=== PATIENT | male | born 1980 | race African-American/Black ===

== ENCOUNTER 2019-02-22 10:32 | Emergency (ER) | payer SELFPAY ==
[~2019-02-22] VITALS: Ht 183 cm; Wt 75.0 kg
[~2019-02-22 10:32] MED LIST: ALBU17AE3; NAPR-243 PO
[2019-02-22] MEDS ORDERED: KETOROLAC 60 MG/2 ML VIAL IM ONE (10:45)
[2019-02-22] MEDS ORDERED: TETANUS,DIPTH,PERTUSS P/F (BOOSTRIX) 0.5 ML VIAL IM ONE (10:45)
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
[2019-02-22 11:09] VITALS: BP 146/98
--- NOTE | 2019-02-22 11:18 | Diagnostic Imaging Report ---
INDICATION: Injury to the right hand. Time of exam: 10:30 AM 3 views of the right hand were obtained. The metacarpals are intact. Phalanges are intact. Carpus unremarkable. No fractures are seen. IMPRESSION: No acute bony abnormality is detected. Dictated by: Dictated on workstation # [id number]
== END 2019-02-22 11:08 | disposition home or self-care (01) ==
LOC: EDUNIT# 10:32 → ER FS 10:35
DX: S00.12XA Contusion of left eyelid and periocular area, initial encounter (principal); S60.221A Contusion of right hand, initial encounter; Z23 Encounter for immunization; Z88.0 Allergy status to penicillin; Y04.8XXA Assault by other bodily force, initial encounter
CPT/HCPCS: 73130; 90715

== ENCOUNTER 2020-01-11 17:36 | Emergency (ER) | payer SELFPAY ==
[~2020-01-11] VITALS: Ht 182.8 cm; Wt 85.0 kg
[2020-01-11 17:40] VITALS: BP 160/102
--- NOTE | 2020-01-11 17:48 | ED Neck-Back Pain/Injury ---
General Chief Complaint: Head/Cervical Problems Stated Complaint: FELL,NECK PAIN History of Present Illness Date Seen by Provider: Jan 11, 2020 Time Seen by Provider: 17:46 Initial Comments 39-year-old male presents with neck and upper back pain. Patient reports he fell couple days ago. Patient was seen by urgent care and given ibuprofen. Patient states she still having some pain in his neck and back. He denies any numbness, tingling, bowel, bladder or any other neurologic or systemic complaints. Patient denies hitting his head. He has no other systemic complaints. Allergies and Home Medications Allergies Uncoded Allergies: PENICILLIN (Allergy, 06/02/10) Home Medications Naproxen 500 Mg Tablet, 1 EACH PO BID PRN Prescribed by: MAURICIO HILL MD on 06/02/10 1613 Patient Home Medication List Home Medication List Reviewed: Yes Review of Systems Constitutional: No chills, No fever EENTM: no symptoms reported Respiratory: no symptoms reported Cardiovascular: no symptoms reported Gastrointestinal: no symptoms reported Genitourinary: no symptoms reported Musculoskeletal: see HPI, back pain Skin: no symptoms reported Psychiatric/Neurological: No Symptoms Reported Past Qrebkrj-Hqisjp-Snchsm Hx Past Med/Social Hx: Reviewed Nursing Past Med/Soc Hx Patient Social History Alcohol Use: Denies Use Recreational Drug Use: No Smoking Status: Never a Smoker 2nd Hand Smoke Exposure: No Recent Foreign Travel: No Contact w/Someone Who Travel: No Recent Hopitalizations: No Physical Abuse: No Sexual Abuse: No Mistreated: No Fear: No Seasonal Allergies Seasonal Allergies: No Past Medical History Surgeries: No Respiratory: No Cardiac: No Neurological: No Genitourinary: No Gastrointestinal: No Musculoskeletal: No Endocrine: No HEENT: No Cancer: No Psychosocial: No Integumentary: No Blood Disorders: No Physical Exam Vital Signs Vital Signs - First Documented 01/11/20 17:40 Temp 36.6 Pulse 98 Resp 16 B/P (MAP) 160/102 (121) Pulse Ox 100 O2 Delivery Room Air Capillary Refill : Height, Weight, BMI Height: '" Weight: lbs. oz. kg; 22.00 BMI Method:Estimated General Appearance: No Apparent Distress HEENT: PERRL/EOMI, Normal ENT Inspection Neck: Full Range of Motion, Supple, Tender Lateral, Tender Midline Cardiovascular: Regular Rate, Rhythm, No Edema Respiratory: Lungs Clear, Normal Breath Sounds Gastrointestinal: Non Tender, Soft Back: No Vertebral Tenderness, Other (bilateral paravertebral tenderness and upper back tenderness) Neurologic/Psychiatric: Oriented x3, Normal Mood/Affect, videogame tester II-XII Norm as Tested; No Motor Weakness, No Sensory Deficit; Other (reflexes 2+ bilateral upp er and lower extremities) Skin: Normal Color, Warm/Dry Lymphatic: No Adenopathy Progress/Results/Core Measures Results/Orders My Orders Orders - RAVEN DIEZ DO Ct Cervical Spine Wo (01/11/20 17:49) Thoracic Spine 3v Ap Lat Swim (01/11/20 17:49) Vital Signs/I&O 01/11/20 17:40 Temp 36.6 Pulse 98 Resp 16 B/P (MAP) 160/102 (121) Pulse Ox 100 O2 Delivery Room Air Diagnostic Imaging Diagonstic Imaging: Xray, CT Comments [facility] [place] [facility] [id number] PT STATUS: REG ER : 1980 PHYSICIAN: RAVEN DIEZ DO ADMIT DATE: 01/11/20/ER FS Draft Date of Exam:01/11/20 THORACIC SPINE 3V AP LAT SWIM INDICATION: Fall, pain. FINDINGS: Thoracic vertebral statures are normal. The alignment is anatomic. The visualized lower cervical spine appeared intact. No fracture demonstrated. IMPRESSION: No acute-appearing abnormality [facility] [place] NAME: DEACON [facility]IANSEN [facility] REC#: [id number] PT STATUS: REG ER : 1980 PHYSICIAN: RAVEN DIEZ DO ADMIT DATE: 01/11/20/ER FS Draft Date of Exam:01/11/20 CT CERVICAL SPINE WO PROCEDURE: CT cervical spine without contrast. TECHNIQUE: Multiple contiguous axial images were obtained through the cervical spine without the use of intravenous contrast. Sagittal and coronal reformations were then performed. Auto Exposure Controls were utilized during the CT exam to meet ALARA standards for radiation dose reduction. INDICATION: Fall, neck pain Reconstruction views reveal normal cervical vertebral body heights aligned anatomically. No substantial canal stenosis. No cervical fracture or paravertebral hematoma. The visualized pulmonary apices showed left greater than right apical cysts. There is partial opacification of the incompletely visualized left maxillary sinus. The mastoid air cells, where visualized, were clear. The visualized bony skull base intact. IMPRESSION: No cervical spinal fracture or traumatic malalignment. Biapical paraseptal blebs and left maxillary sinus disease incompletely visualized. Reviewed: Reviewed by Me, Reviewed/Discussed Departure Impression Primary Impression: Neck sprain Qualified Codes: S13.9XXA - Sprain of joints and ligaments of unspecified parts of neck, initial encounter Additional Impression: Contusion of thoracic wall Qualified Codes: S20.229A - Contusion of unspecified back wall of thorax, initial encounter Disposition: 01 HOME, SELF-CARE Condition: Stable Departure-Patient Inst. Referrals: NO,LOCAL PHYSICIAN (PCP/Family) Primary Care Physician Patient Instructions: Neck Sprain (DC), Contusion (DC), Blunt Chest Trauma Add. Discharge Instructions: 4% topical lidocaine with menthol as directed on package Capsaicin cream as directed on package Emergency department focuses on treating and ruling out life-threatening diseases. Whenever possible, a diagnosis is given. However, most patients are given an impression based on their history, physical exam, and workup during your brief time in the ER. Information about probable diagnosis and other educational material has been provided. Please take the time to read and understand this information. It is very important that you follow up with a physician as discussed during the visit today. Failure to adhere to your follow-up instructions may lead to severe disability, injury, or so please make sure to keep your appointments or obtain one as requested. Please keep in mind the emergency department is not designed to your primary care or "family doctor" and nonurgent issues are best evaluated by an outpatient physician All discharge instructions reviewed with patient and/or family. Voiced understanding. RAVEN DIEZ DO Jan 11, 2020 17:48
--- NOTE | 2020-01-11 18:22 | Diagnostic Imaging Report ---
INDICATION: Fall, pain. FINDINGS: Thoracic vertebral statures are normal. The alignment is anatomic. The visualized lower cervical spine appeared intact. No fracture demonstrated. IMPRESSION: No acute-appearing abnormality. Dictated by: Dictated on workstation # [id number]
--- NOTE | 2020-01-11 18:29 | Diagnostic Imaging Report ---
PROCEDURE: CT cervical spine without contrast. TECHNIQUE: Multiple contiguous axial images were obtained through the cervical spine without the use of intravenous contrast. Sagittal and coronal reformations were then performed. Auto Exposure Controls were utilized during the CT exam to meet ALARA standards for radiation dose reduction. INDICATION: Fall, neck pain Reconstruction views reveal normal cervical vertebral body heights aligned anatomically. No substantial canal stenosis. No cervical fracture or paravertebral hematoma. The visualized pulmonary apices showed left greater than right apical cysts. There is partial opacification of the incompletely visualized left maxillary sinus. The mastoid air cells, where visualized, were clear. The visualized bony skull base intact. IMPRESSION: No cervical spinal fracture or traumatic malalignment. Biapical paraseptal blebs and left maxillary sinus disease incompletely visualized. Dictated by: Dictated on workstation # [id number]
== END 2020-01-11 18:36 | disposition home or self-care (01) ==
LOC: EDUNIT# 17:36 → ER FS 17:38
DX: S13.9XXA Sprain of joints and ligaments of unspecified parts of neck, initial encounter (principal); S20.20XA Contusion of thorax, unspecified, initial encounter; Z88.0 Allergy status to penicillin; W19.XXXA Unspecified fall, initial encounter
CPT/HCPCS: 72072; 72125

== ENCOUNTER → 2020-05-12 | Outpatient (CLI) | payer SELFPAY ==
--- NOTE | 2020-05-12 15:16 | Diagnostic Imaging Report ---
INDICATION: Displaced fracture of shaft of fifth metacarpal bone. Right hand at 142 hours. 4 views were obtained. FINDINGS: The previous right hand exam of 02/22/2019 failed to show any sign of an acute bony abnormality. On this exam, however there is now a transverse slightly irregular mildly dorsally angulated nondisplaced fracture extending through the waist of the midshaft of the 5th metacarpal. There is also a fiberglass cast in place and I suspect that this fracture is subacute nature. If previous studies are available, they would be helpful for comparison. No other fracture or acute bony abnormality is appreciated. The soft tissues are unremarkable. IMPRESSION: 1. There is a transverse probably subacute essentially nondisplaced fracture of the waist of the 5th metacarpal. Additional considerations as above. 2. There is no acute bony abnormality noted otherwise. Dictated by: Dictated on workstation # [id number]
== END ==
LOC: RAD FS 13:38
PROVIDERS: ATTEND Nurse Practitioner
DX: S62.326A Displaced fracture of shaft of fifth metacarpal bone, right hand, initial encounter for closed fracture (principal)
CPT/HCPCS: 73130

== ENCOUNTER → 2020-05-30 | Outpatient (CLI) | payer SELFPAY ==
--- NOTE | 2020-05-30 15:37 | Diagnostic Imaging Report ---
INDICATION: Followup right 5th metacarpal fracture. COMPARISON: 05/12/2020. FINDINGS: A fiberglass cast remains in place. The transverse fracture of the midshaft of the 5th metacarpal is again noted. There has been some early bony bridging callus develop. The alignment is unchanged. IMPRESSION: Nondisplaced 5th metacarpal shaft fracture with some bony bridging callus developing. Dictated by: Dictated on workstation # [id number]
== END ==
LOC: RAD FS 14:22
PROVIDERS: ATTEND Nurse Practitioner
DX: S62.326D Displaced fracture of shaft of fifth metacarpal bone, right hand, subsequent encounter for fracture with routine healing (principal); X58.XXXD Exposure to other specified factors, subsequent encounter
CPT/HCPCS: 73130

== ENCOUNTER → 2020-06-06 | Outpatient (CLI) | payer SELFPAY ==
--- NOTE | 2020-06-06 12:33 | Diagnostic Imaging Report ---
INDICATION: Fracture followup. COMPARISON: 05/30/2020. FINDINGS: There has been some increased periosteal and endosteal new bone formation associated with a healing mid shaft 5th metacarpal fracture. The distal fragment shows mild anterior palmar angulation, unchanged. No overlap or foreshortening. No articular injury. IMPRESSION: Stable alignment of the healing mid shaft extra-articular 5th metacarpal fracture. Dictated by: Dictated on workstation # [id number]
== END ==
LOC: RAD FS 10:10
PROVIDERS: ATTEND Nurse Practitioner
DX: S62.326D Displaced fracture of shaft of fifth metacarpal bone, right hand, subsequent encounter for fracture with routine healing (principal); X58.XXXD Exposure to other specified factors, subsequent encounter
CPT/HCPCS: 73130

== ENCOUNTER 2022-06-24 18:37 | Emergency (ER) | payer BC ==
[~2022-06-24] VITALS: Ht 182.8 cm; Wt 92.3 kg
--- NOTE | 2022-06-24 18:42 | ED Cough/URI ---
General Stated Complaint: SOA, BRONCHITIS History of Present Illness Date Seen by Provider: Jun 24, 2022 Time Seen by Provider: 18:42 Initial Comments 41-year-old male with PMH of asthma/ex-smoker, is here with complaints of ongoing bronchitis which has been going on for 1 week, and was diagnosed in urgent care. Today patient states that he is more short of breath than usual and he has run out of his albuterol inhaler which usually helps his shortness of breath when he is ill. Patient complains of coughing and sternal chest pain which is associated with a coughing, and which hurts when he presses on it. Denies palpitations, headache, abdominal pain, diaphoresis, diarrhea. No known sick contacts. Allergies and Home Medications Allergies Uncoded Allergies: PENICILLIN (Allergy, 06/02/10) Patient Home Medication List Home Medication List Reviewed: Yes Albuterol (Proventil) 17 Gm Inh, (Reported) Entered as Reported by: JUWAN ELLIS on 06/02/10 1438 Naproxen (Naprosyn) 500 Mg Tablet, 1 EACH PO BID PRN Prescribed by: MAURICIO HILL MD on 06/02/10 1613 Review of Systems Review of Systems Constitutional: no symptoms reported EENTM: no symptoms reported Respiratory: see HPI, cough, short of breath, wheezing Cardiovascular: no symptoms reported Gastrointestinal: no symptoms reported Genitourinary: no symptoms reported Musculoskeletal: no symptoms reported Skin: no symptoms reported Psychiatric/Neurological: No Symptoms Reported Hematologic/Lymphatic: No Symptoms Reported Immunological/Allergic: no symptoms reported Past Uqgsebh-Wvfvpm-Qmpnty Hx Seasonal Allergies Seasonal Allergies: No Past Medical History Surgeries: No Respiratory: No Cardiac: No Neurological: No Genitourinary: No Gastrointestinal: No Musculoskeletal: No Endocrine: No HEENT: No Cancer: No Psychosocial: No Integumentary: No Blood Disorders: No Physical Exam Vital Signs - First Documented 06/24/22 18:40 Temp 36.8 Pulse 94 Resp 20 B/P (MAP) 139/95 (110) Pulse Ox 100 O2 Delivery Room Air Capillary Refill : Height: '" Weight: lbs. oz. kg; 25.00 BMI Method:Estimated General Appearance: WD/WN, mild distress Eyes: Bilateral Eye Normal Inspection HEENT: PERRL/EOMI, pharynx normal Neck: non-tender, full range of motion, supple Respiratory: no respiratory distress, wheezing (Expiratory wheeze which is mild and intermittent), other (Reproducible chest wall tenderness along the 11th and 12th costochondral junction) Cardiovascular: regular rate, rhythm, no gallop Gastrointestinal: normal bowel sounds, non tender, soft Extremities: normal range of motion Neurologic/Psychiatric: alert, normal mood/affect, oriented x 3 Skin: normal color Progress/Results/Core Measures Suspected Sepsis SIRS Temperature: Pulse: Respiratory Rate: Blood Pressure / Mean: Results/Orders Lab Results Laboratory Tests Test 06/24/22 18:57 Range/Units Influenza Type A (RT-PCR) Not Detected Not Detecte Influenza Type B (RT-PCR) Not Detected Not Detecte SARS-CoV-2 RNA (RT-PCR) Not Detected Not Detecte My Orders Orders - ANGUS ANDERSON MD Chest 1 View Ap/Pa Only (06/24/22 18:43) Influenza A And B By Pcr (06/24/22 18:45) Covid 19 Inhouse Test (06/24/22 18:46) Albuterol/Ipra Inhalation Soln (Duoneb I (06/24/22 19:00) Svn Small Volume Nebulizer (06/24/22 18:46) Dexamethasone Injection (Decadron Inje (06/24/22 19:00) Continuous Ekg Monitoring (06/24/22 18:47) Ekg Tracing (06/24/22 18:47) Medications Given in ED Current Medications Medications Dose Ordered Sig/Arianne Route Start Time Stop Time Status Last Admin Dose Admin Albuterol/ Ipratropium 3 ml ONCE ONCE INH 06/24/22 19:00 06/24/22 19:01 DC 06/24/22 19:04 3 ML Dexamethasone Sodium Phosphate 10 mg ONCE ONCE IM 06/24/22 19:00 06/24/22 19:01 DC 06/24/22 19:04 10 MG Vital Signs/I&O 06/24/22 18:40 Temp 36.8 Pulse 94 Resp 20 B/P (MAP) 139/95 (110) Pulse Ox 100 O2 Delivery Room Air Capillary Refill : Progress Note : Progress Note 1. ACUTE ASTHMA EXACERBATION / BRONCHITIS - CXR: no acute findings - COVID/ Flu test: - EKG: normal - Dexa 10mg im STAT - Duo neb x1 : pt's symptoms resolved with this, and he stopped having chest wall pain as well, with a clear lung exam -Prescription for azithromycin for 3 days with the first tablet being given in the ER. -Follow-up with PCP within the next 3 to 7 days -Advised to stay away from secondhand smoke, and also advised to drink 6 to 8 glasses of water a day -The patient was seen in the ED, and treated appropriately to presentation at a specific point in time. Patient is informed that there is a possibility that disease and illness can evolve and change in acuity rapidly or slowly after patient is discharged from the ER. Precautionary advice given to the patient for immediate return to ER if symptoms worsen or do not resolve, and to seek emergency care sooner rather than later. Pt also advised on the importance of PCP follow up and compliance with management and follow up plan with PCP and/or specialist, as this is part of the management plan. Pt verbally expressed understanding. 2. MEDICATION REFILL: - Refill given for Albuterol inhaler and also dispensed from ER since pharmacy was closed ECG Initial ECG Impression Date: Jun 24, 2022 Initial ECG Impression Time: 18:56 Initial ECG Rate: 73 Initial ECG Rhythm: Normal Sinus Initial ECG Intervals: Normal Initial ECG Impression: Normal Initial ECG Comparisson: No Previous ECG Available Diagnostic Imaging Diagonstic Imaging: Xray Plain Films/CT/US/NM/MRI: chest Comments NAME: DEACON CHRISTIANSEN [facility] REC#: [id number] PT STATUS: REG ER : 1980 PHYSICIAN: ANGUS ANDERSON MD ADMIT DATE: 06/24/22/ER FS Draft Date of Exam:06/24/22 CHEST 1 VIEW AP/PA ONLY INDICATION: Shortness of breath and bronchitis. FINDINGS: The heart size, mediastinal configuration and pulmonary vascularity are within normal limits. There is no pleural effusion, pneumothorax or pneumonia. The osseous structures are unremarkable. IMPRESSION: No acute cardiopulmonary abnormality. Dictated on workstation # [id number] Dict: 06/24/221853 Trans: 06/24/221856 PJE [id number] Interpreted by: ERIC REED MD Electronically signed by: Departure Impression Primary Impression: Acute asthma exacerbation Qualified Codes: J45.901 - Unspecified asthma with (acute) exacerbation Additional Impression: Bronchitis Disposition: 01 HOME, SELF-CARE Condition: Improved Departure-Patient Inst. Referrals: NO,LOCAL PHYSICIAN (PCP/Family) Primary Care Physician Patient Instructions: Asthma, Adult (DC), Acute Bronchitis, Chronic Bronchitis, Oral Steroid Medicines Add. Discharge Instructions: -Prescription for azithromycin for 3 days with the first tablet being given in the ER. -Follow-up with PCP within the next 3 to 7 days -Advised to stay away from secondhand smoke, and also advised to drink 6 to 8 glasses of water a day - Refill given for Albuterol inhaler and also dispensed from ER since pharmacy was closed Scripts Prednisone (Prednisone) 50 Mg Tab 50 MG PO DAILY for 4 Days, #4 TAB Prov: ANGUS ANDERSON MD 06/24/22 Albuterol Sulfate (VENTOLIN HFA) 1 Puff Puff 2 PUFF INH Q4H PRN for WHEEZING for 30 Days, #1 EA 1 PUFF = 90 MCG Prov: ANGUS ANDERSON MD 06/24/22 Work/School Note: Work Release Form Date Seen in the Emergency Department: Jun 24, 2022 Return to Work: Jun 26, 2022 ANGUS ANDERSON MD Jun 24, 2022 18:42
--- NOTE | 2022-06-24 18:57 | Diagnostic Imaging Report ---
INDICATION: Shortness of breath and bronchitis. FINDINGS: The heart size, mediastinal configuration and pulmonary vascularity are within normal limits. There is no pleural effusion, pneumothorax or pneumonia. The osseous structures are unremarkable. IMPRESSION: No acute cardiopulmonary abnormality. Dictated by: Dictated on workstation # [id number]
[2022-06-24] MEDS ORDERED: RT-ALBUTEROL/IPRATROPIUM 3 ML (DUONEB) VIAL INH ONE (19:00)
[2022-06-24] MEDS ORDERED: PRD50T PO (19:59)
[2022-06-24] MEDS ORDERED: RT-ALBUINH INH (19:59)
[2022-06-24] MEDS ORDERED: AZITHROMYCIN 250 MG TAB (ZITHROMAX) PO ONE ×2 (20:00→20:09)
[2022-06-24] MEDS ORDERED: RX-ALBUTEROL INHALER 8.5 GM HFA (PROAIR) IH PRN (20:00)
[2022-06-24] MEDS ORDERED: AZIT500T9 PO (20:02)
[2022-06-24 20:19] VITALS: BP 126/92
== END 2022-06-24 20:21 | disposition home or self-care (01) ==
LOC: EDUNIT# 18:37 → ER FS 18:39
DX: J45.901 Unspecified asthma with (acute) exacerbation (principal); Z79.51 Long term (current) use of inhaled steroids; Z87.891 Personal history of nicotine dependence; Z20.822 Contact with and (suspected) exposure to COVID-19; Z28.310 Unvaccinated for COVID-19
CPT/HCPCS: 71045; 87636; 93005; 94640

== ENCOUNTER 2022-10-02 19:08 | Emergency (ER) | payer BC ==
[~2022-10-02] VITALS: Ht 182.8 cm; Wt 87.9 kg
[~2022-10-02 19:08] MED LIST changes: +AZIT500T9 PO; +PRD50T PO; +RT-ALBUINH INH
[2022-10-02 19:23] VITALS: BP 138/90
[2022-10-02] MEDS ORDERED: DOXYCYCLINE 100 MG (VIBRAMYCIN) TABLET PO STA (19:30)
[2022-10-02] MEDS ORDERED: DOXY100T2 PO (19:34)
--- NOTE | 2022-10-02 19:35 | ED General ---
General Stated Complaint: BODY ACHES Source of Information: Patient Exam Limitations: No Limitations History of Present Illness Date Seen by Provider: October 02, 2022 Time Seen by Provider: 19:11 Initial Comments 41-year-old male otherwise healthy coming in after he pulled a tick off him on , now with body aches, fatigue, elevated subjective temperature. Does not know if he has a rash. Otherwise denying any other acute complaints. Allergies and Home Medications Allergies Uncoded Allergies: PENICILLIN (Allergy, 06/02/10) Patient Home Medication List Home Medication List Reviewed: Yes Albuterol (Proventil) 17 Gm Inh, (Reported) Entered as Reported by: JUWAN ELLIS on 06/02/10 1438 Albuterol Sulfate (Ventolin Hfa) 1 Puff Puff, 2 PUFF INH Q4H PRN for WHEEZING Prescribed by: ANGUS ANDERSON MD on 06/24/221958 Azithromycin (Azithromycin) 500 Mg Tablet, 500 MG PO DAILY Prescribed by: ANGUS ANDERSON MD on 06/24/222001 Doxycycline Hyclate (Doxycycline Hyclate) 100 Mg Tablet, 100 MG PO BID Prescribed by: LILLI FERNANDEZ on 10/02/221933 Naproxen (Naprosyn) 500 Mg Tablet, 1 EACH PO BID PRN Prescribed by: MAURICIO HILL MD on 06/02/10 161 Prednisone (Prednisone) 50 Mg Tab, 50 MG PO DAILY Prescribed by: ANGUS ANDERSON MD on 06/24/221958 Review of Systems Review of Systems Constitutional: malaise Past Maxoxva-Pdjjao-Bgpupj Hx Seasonal Allergies Seasonal Allergies: No Past Medical History Surgeries: No Respiratory: No Cardiac: No Neurological: No Genitourinary: No Gastrointestinal: No Musculoskeletal: No Endocrine: No HEENT: No Cancer: No Psychosocial: No Integumentary: No Blood Disorders: No Physical Exam Vital Signs Vital Signs - First Documented 10/02/22 19:23 Temp 37.2 Pulse 108 Resp 18 B/P (MAP) 138/90 (106) Pulse Ox 98 O2 Delivery Room Air Capillary Refill : Height, Weight, BMI Height: '" Weight: lbs. oz. kg; 27.00 BMI Method:Estimated General Appearance: No Apparent Distress, WD/WN HEENT: PERRL/EOMI, Normal ENT Inspection, Pharynx Normal Neck: Full Range of Motion, Normal Inspection, Non Tender, Supple Respiratory: Chest Non Tender, Lungs Clear, Normal Breath Sounds, No Accessory Muscle Use, No Respiratory Distress Cardiovascular: Regular Rate, Rhythm, No Edema, Normal Peripheral Pulses Gastrointestinal: Non Tender, Soft Extremity: Normal Capillary Refill, Normal Inspection, Normal Range of Motion, Non Tender, No Calf Tenderness Neurologic/Psychiatric: Alert, No Motor/Sensory Deficits, Normal Mood/Affect, Other (No meningismus) Progress/Results/Core Measures Suspected Sepsis SIRS Temperature: Pulse: Respiratory Rate: Blood Pressure / Mean: Results/Orders Lab Results Laboratory Tests Test 10/02/22 19:27 Range/Units SARS-CoV-2 RNA (RT-PCR) Not Detected Not Detecte My Orders Orders - LILLI FERNANDEZ MD Doxycycline Hyclate Tablet (Vibramycin T (10/02/22 19:30) Covid 19 Inhouse Test (10/02/22 19:30) Tick Panel With Lyme Eia (10/02/22 19:30) Vital Signs/I&O 10/02/22 19:23 Temp 37.2 Pulse 108 Resp 18 B/P (MAP) 138/90 (106) Pulse Ox 98 O2 Delivery Room Air Capillary Refill : Progress Note : Progress Note Presented after a tick bite with body aches. ABCs were intact and vitals were stable on presentation. Has a small area of erythema on his left scapula where he was bitten. No target rash. Given the body aches, and concern for tickborne illness. We will send a test for COVID as well as the tick panel. We will start him on doxycycline here and followed by prescription. COVID test is negative. Otherwise nontoxic-appearing, no meningismus, and I believe stable for discharge with outpatient follow-up. He was sent home with strict return precautions. Of note, patient left prior to getting COVID results. I attempted to call the number on file to say they were negative and the number was disconnected. Departure Impression Primary Impression: Tick bite Qualified Codes: S20.462A - Insect bite (nonvenomous) of left back wall of thorax, initial encounter; W57.XXXA - Bitten or stung by nonvenomous insect and other nonvenomous arthropods, initial encounter Additional Impression: Flu-like symptoms Disposition: 01 HOME, SELF-CARE Condition: Stable Departure-Patient Inst. Decision time for Depature: 19:40 Referrals: NO,LOCAL PHYSICIAN (PCP/Family) Primary Care Physician Patient Instructions: Insect Bites and Stings (DC) Add. Discharge Instructions: We are concerned you could have a tickborne illness. We will call you with the results and likely 5 to 7 days if they are positive. We will start you on doxycycline which is the treatment for most tickborne illnesses. Take ibuprofen or Tylenol as needed for fever or body aches. Scripts Doxycycline Hyclate (Doxycycline Hyclate) 100 Mg Tablet 100 MG PO BID for 10 Days, #20 TAB 0 Refills Prov: LILLI FERNANDEZ MD 10/02/22 Work/School Note: Work Release Form Date Seen in the Emergency Department: October 02, 2022 Return to Work: October 04, 2022 Restrictions: Return-No Fever (24hrs) LILLI FERNANDEZ MD October 02, 2022 19:35
== END 2022-10-02 19:51 | disposition home or self-care (01) ==
LOC: EDUNIT# 19:08 → ER FS 19:09
DX: S20.462A Insect bite (nonvenomous) of left back wall of thorax, initial encounter (principal); R53.83 Other fatigue; R50.9 Fever, unspecified; R52 Pain, unspecified; Z88.0 Allergy status to penicillin; Z20.822 Contact with and (suspected) exposure to COVID-19; Z28.310 Unvaccinated for COVID-19; W57.XXXA Bitten or stung by nonvenomous insect and other nonvenomous arthropods, initial encounter
CPT/HCPCS: 36415; 86618; 86666; 86668; 86757; 87636

== ENCOUNTER 2022-10-04 11:41 | Emergency (ER) | payer BC ==
[~2022-10-04] VITALS: Ht 182 cm; Wt 88.0 kg
[~2022-10-04 11:41] MED LIST changes: +DOXY100T2 PO
--- NOTE | 2022-10-04 11:48 | ED General ---
General Stated Complaint: FATIGUE Source of Information: Patient Exam Limitations: No Limitations History of Present Illness Date Seen by Provider: October 04, 2022 Time Seen by Provider: 11:37 Initial Comments 41-year-old male with history of asthma presents to the emergency department via EMS for fatigue. He states symptoms started on Saturday. He was seen here on Saturday. He did have a tick in his scapular region that was pulled off 5 days before symptoms started. Tick panel was sent and was started on doxycycline by mouth. He states he has been taking the medicine but his fatigue is gotten progressively worse. He complains of joint pains as well. He states he has had some fevers at home with the last being 100 degrees when taken orally last night. No cough. No abdominal pain. No changes in bowel or bladder habits. All other systems reviewed and negative except documented per HPI. Voice recognition software was used to help create this chart Allergies and Home Medications Allergies Uncoded Allergies: PENICILLIN (Allergy, 06/02/10) Patient Home Medication List Home Medication List Reviewed: Yes Albuterol (Proventil) 17 Gm Inh, (Reported) Entered as Reported by: JUWAN ELLIS on 06/02/10 1438 Albuterol Sulfate (Ventolin Hfa) 1 Puff Puff, 2 PUFF INH Q4H PRN for WHEEZING Prescribed by: ANGUS ANDERSON MD on 06/24/221958 Azithromycin (Azithromycin) 500 Mg Tablet, 500 MG PO DAILY Prescribed by: ANGUS ANDERSON MD on 06/24/222001 Doxycycline Hyclate (Doxycycline Hyclate) 100 Mg Tablet, 100 MG PO BID Prescribed by: LILLI FERNANDEZ on 10/02/221933 Naproxen (Naprosyn) 500 Mg Tablet, 1 EACH PO BID PRN Prescribed by: MAURICIO HILL MD on 06/02/101612 Prednisone (Prednisone) 50 Mg Tab, 50 MG PO DAILY Prescribed by: ANGUS ANDERSON MD on 06/24/221958 Review of Systems Review of Systems Constitutional: see HPI Past Cvlgqua-Nmvcvv-Btztbm Hx Patient Social History Tobacco Use?: Yes Use of E-Cig and/or Vaping dev: No Substance use?: No Alcohol Use?: No Seasonal Allergies Seasonal Allergies: No Past Medical History Surgeries: No Respiratory: No Cardiac: No Neurological: No Genitourinary: No Gastrointestinal: No Musculoskeletal: No Endocrine: No HEENT: No Cancer: No Psychosocial: No Integumentary: No Blood Disorders: No Family Medical History Reviewed Nursing Family Hx No Pertinent Family Hx Physical Exam Vital Signs Vital Signs - First Documented 10/04/22 11:41 Temp 37.3 Pulse 96 Resp 16 B/P (MAP) 140/92 (108) Pulse Ox 98 O2 Delivery Room Air Capillary Refill : Height, Weight, BMI Height: '" Weight: lbs. oz. kg; 26.00 BMI Method:Estimated General Appearance: No Apparent Distress, WD/WN HEENT: Normal ENT Inspection, Pharynx Normal Neck: Normal Inspection, Non Tender, Supple Respiratory: Chest Non Tender, Lungs Clear, Normal Breath Sounds, No Accessory Muscle Use, No Respiratory Distress Cardiovascular: Regular Rate, Rhythm, No Murmur Gastrointestinal: Normal Bowel Sounds, No Organomegaly, No Pulsatile Mass, Non Tender, Soft Extremity: Normal Capillary Refill, Normal Inspection, Normal Range of Motion, Non Tender, No Calf Tenderness Neurologic/Psychiatric: Alert, Oriented x3, Normal Mood/Affect Skin: Normal Color, Warm/Dry Progress/Results/Core Measures Suspected Sepsis SIRS Temperature: Pulse: Respiratory Rate: Laboratory Tests 10/04/22 11:54: White Blood Count 4.5 Blood Pressure / Mean: Laboratory Tests 10/04/22 11:54: Creatinine 0.82, Platelet Count 212, Total Bilirubin 0.4 Results/Orders Lab Results Laboratory Tests Test 10/04/22 11:54 Range/Units White Blood Count 4.5 4.3-11.0 10^3/uL Red Blood Count 5.02 4.30-5.52 10^6/uL Hemoglobin 14.7 13.3-17.7 g/dL Hematocrit 44 40-54 % Mean Corpuscular Volume 88 80-99 fL Mean Corpuscular Hemoglobin 29 25-34 pg Mean Corpuscular Hemoglobin Concent 33 32-36 g/dL Red Cell Distribution Width 13.8 10.0-14.5 % Platelet Count 212 130-400 10^3/uL Mean Platelet Volume 9.0 9.0-12.2 fL Immature Granulocyte % (Auto) 0 % Neutrophils (%) (Auto) 72 42-75 % Lymphocytes (%) (Auto) 18 12-44 % Monocytes (%) (Auto) 9 0-12 % Eosinophils (%) (Auto) 0 0-10 % Basophils (%) (Auto) 0 0-10 % Neutrophils # (Auto) 3.3 1.8-7.8 10^3/uL Lymphocytes # (Auto) 0.8 L 1.0-4.0 10^3/uL Monocytes # (Auto) 0.4 0.0-1.0 10^3/uL Eosinophils # (Auto) 0.0 0.0-0.3 10^3/uL Basophils # (Auto) 0.0 0.0-0.1 10^3/uL Immature Granulocyte # (Auto) 0.0 0.0-0.1 10^3/uL Sodium Level 137 135-145 MMOL/L Potassium Level 3.8 3.6-5.0 MMOL/L Chloride Level 107 98-107 MMOL/L Carbon Dioxide Level 19 L 21-32 MMOL/L Anion Gap 11 5-14 MMOL/L Blood Urea Nitrogen 8 7-18 MG/DL Creatinine 0.82 0.60-1.30 MG/DL Estimat Glomerular Filtration Rate 115 BUN/Creatinine Ratio 10 Glucose Level 132 H 70-105 MG/DL Calcium Level 8.7 8.5-10.1 MG/DL Corrected Calcium 8.9 8.5-10.1 MG/DL Total Bilirubin 0.4 0.1-1.0 MG/DL Aspartate Amino Transf (AST/SGOT) 31 5-34 U/L Alanine Aminotransferase (ALT/SGPT) 50 0-55 U/L Alkaline Phosphatase 85 40-136 U/L Total Protein 6.6 6.4-8.2 GM/DL Albumin 3.7 3.2-4.5 GM/DL My Orders Orders - GIOVANY MORA DO Cbc With Automated Diff (10/04/22 11:49) Comprehensive Metabolic Panel (10/04/22 11:49) Vital Signs/I&O 10/04/22 10/04/22 11:41 12:34 Temp 37.3 37.3 Pulse 96 84 Resp 16 16 B/P (MAP) 140/92 (108) 136/84 Pulse Ox 98 98 O2 Delivery Room Air Room Air Capillary Refill : Departure Communication (Admissions) Patient is hemodynamically stable. Vital signs are completely normal and his exam is benign. Labs are unremarkable including elevation of LFTs. Tickborne studies are still pending at this time however he is on doxycycline. He is discharged in stable condition. Impression Primary Impression: Fatigue Qualified Codes: R53.83 - Other fatigue Disposition: 01 HOME, SELF-CARE Condition: Stable Departure-Patient Inst. Referrals: NO,LOCAL PHYSICIAN (PCP) Primary Care Physician [facility] [place] Discharge Instructions: You are seen in the emergency department today for fatigue. No emergent medical conditions identified for your symptoms today. Your tick panel is still pending. Increase your fluids and rest as needed. Take the doxycycline as prescribed. Return to the emergency department for any severe concerns. Follow-up with your primary doctor should your symptoms persist as they currently are. GIOVANY MORA DO October 04, 2022 11:48
[2022-10-04 12:00] LABS: BASOPHILS % (AUTO) 0 % (0-10); EOSINOPHILS % (AUTO) 0 % (0-10); HEMATOCRIT 44 % (40-54); HEMOGLOBIN 14.7 g/dL (13.3-17.7); LYMPHOCYTES # (AUTO) 0.8 10^3/uL (1.0-4.0); LYMPHOCYTES % (AUTO) 18 % (12-44); MEAN CORPUSCULAR HEMOGLOBIN 29 pg (25-34); MEAN CORPUSCULAR HGB CONC 33 g/dL (32-36); MEAN CORPUSCULAR VOLUME 88 fL (80-99); MONOCYTES # (AUTO) 0.4 10^3/uL (0.0-1.0); MONOCYTES % (AUTO) 9 % (0-12); NEUTROPHILS # (AUTO) 3.3 10^3/uL (1.8-7.8); NEUTROPHILS % (AUTO) 72 % (42-75); PLATELET COUNT 212 10^3/uL (130-400); WHITE BLOOD COUNT 4.5 10^3/uL (4.3-11.0)
[2022-10-04 12:20] LABS: CALCIUM 8.7 MG/DL (8.5-10.1); CREATININE SERUM 0.82 MG/DL (0.60-1.30); POTASSIUM 3.8 MMOL/L (3.6-5.0)
[2022-10-04 12:21] LABS: ALBUMIN 3.7 GM/DL (3.2-4.5); BILIRUBIN,TOTAL 0.4 MG/DL (0.1-1.0); TOTAL PROTEIN 6.6 GM/DL (6.4-8.2)
[2022-10-04 12:34] VITALS: BP 136/84
== END 2022-10-04 12:35 | disposition home or self-care (01) ==
LOC: EDUNIT# 11:41 → ER FS 11:45
DX: R53.83 Other fatigue (principal); R79.89 Other specified abnormal findings of blood chemistry; Z28.310 Unvaccinated for COVID-19
CPT/HCPCS: 36415; 80053; 85025

== ENCOUNTER 2022-10-09 08:56 | Emergency (ER) | payer BC ==
--- NOTE | 2022-10-09 09:08 | ED General ---
General Stated Complaint: GEN WEAKNESS Source of Information: Patient History of Present Illness Date Seen by Provider: October 09, 2022 Time Seen by Provider: 08:57 Initial Comments 41-year-old male presenting with complaints of general weakness, fever Tmax 102 Fahrenheit last night, chills, body aches, nausea, vomiting, diarrhea, diffuse abdominal pain. He states this all started after a tick bite on September 27. He has been taking doxycycline that was prescribed on July 05. He states he has not been able to eat since Saturday because of stomach pain and nausea with vomiting. He has not thrown up since Saturday. He took ibuprofen for his 102 Fahrenheit temperature last night. He was feeling very weak and was sweating a lot this morning so he had a friend bring him to the emergency department. He reports having a history of asthma but denies any other medical problems and no surgeries. He states that he had been having some diarrhea as well. He denies any pain or burning with urination. Denies seeing any blood in his stool, urine, vomit. Timing/Duration: Getting Worse (Over the last 2 weeks) Severity: Severe Modifying Factors: worse with Eating (Anytime he tries to eat or drink anything he gets sick to his stomach and has pain.) Associated Systoms: No Chest Pain, No Cough; Diaphoresis, Fever/Chills, Loss of Appetite, Malaise, Nausea/Vomiting, Rash (Reports that his face broke out in a rash on Saturday. He has not had any rash around the area of tick bite on the left axilla); No Seizure; Shortness of Air; No Syncope; Weakness Allergies and Home Medications Allergies Coded Allergies: Penicillins (Verified Allergy, Intermediate, Rash, 10/09/22) Patient Home Medication List Home Medication List Reviewed: Yes Albuterol (Proventil) 17 Gm Inh, (Reported) Entered as Reported by: JUWAN ELLIS on 06/02/10 1438 Doxycycline Hyclate (Doxycycline Hyclate) 100 Mg Tablet, 100 MG PO BID Prescribed by: LILLI FERNANDEZ on 10/02/221933 Ondansetron (Ondansetron Odt) 4 Mg Tab.rapdis, 4 MG PO Q6H PRN for NAUSEA/VOMITING Prescribed by: NICOLE ARMSTRONG on 10/09/22 1055 Discontinued Medications Albuterol Sulfate (Ventolin Hfa) 1 Puff Puff, 2 PUFF INH Q4H PRN for WHEEZING Prescribed by: ANGUS ANDERSON MD on 06/24/221958 Azithromycin (Azithromycin) 500 Mg Tablet, 500 MG PO DAILY Prescribed by: ANGUS ANDERSON MD on 06/24/222001 Naproxen (Naprosyn) 500 Mg Tablet, 1 EACH PO BID PRN Prescribed by: MAURICIO HILL MD on 06/02/101612 Prednisone (Prednisone) 50 Mg Tab, 50 MG PO DAILY Prescribed by: ANGUS ANDERSON MD on 06/24/221958 Review of Systems Review of Systems Constitutional: chills, diaphoresis, fever, malaise, weakness EENTM: no symptoms reported Respiratory: short of breath; No stridor, No wheezing Cardiovascular: No chest pain Gastrointestinal: abdominal pain (diffuse abdominal pain), diarrhea, loss of appetite, nausea, vomiting Genitourinary: decreased output Musculoskeletal: other (generalized body aches) Skin: see HPI Psychiatric/Neurological: Weakness (generalized) Hematologic/Lymphatic: No Symptoms Reported Past [place]-Nvbwke-Oxsywr Hx Seasonal Allergies Seasonal Allergies: No Past Medical History Surgery/Hospitalization HX: ASTHMA Surgeries: No Respiratory: No Cardiac: No Neurological: No Genitourinary: No Gastrointestinal: No Musculoskeletal: No Endocrine: No HEENT: No Cancer: No Psychosocial: No Integumentary: No Blood Disorders: No Family Medical History No Pertinent Family Hx Physical Exam Vital Signs Vital Signs - First Documented 10/09/22 09:05 Temp 35.5 Pulse 85 Resp 18 B/P (MAP) 112/74 (87) Pulse Ox 96 O2 Delivery Room Air Capillary Refill : Height, Weight, BMI Height: '" Weight: lbs. oz. kg; 26.00 BMI Method:Estimated General Appearance: No Apparent Distress, WD/WN, Other (diaphoretic and appears to not feel well) HEENT: PERRL/EOMI, Pharynx Normal, Moist Mucous Membranes; No Photophobia Neck: Full Range of Motion, Normal Inspection, Non Tender, Supple Respiratory: Chest Non Tender, Lungs Clear, Normal Breath Sounds, No Accessory Muscle Use, No Respiratory Distress Cardiovascular: Regular Rate, Rhythm, Normal Peripheral Pulses Gastrointestinal: No Pulsatile Mass, Soft, Abnormal Bowel Sounds (hypoactive), Guarding, Tenderness (diffuse) Rectal: Deferred Extremity: Normal Capillary Refill, Normal Inspection, No Pedal Edema Neurologic/Psychiatric: Alert, Oriented x3, beader tender II-XII Norm as Tested Skin: Diaphoresis Focused Exam Lactate Level 10/09/22 09:05: Lactic Acid Level 1.26 Lactic Acid Level Laboratory Tests Test 10/09/22 09:05 Lactic Acid Level 1.26 MMOL/L (0.50-2.00) Progress/Results/Core Measures Suspected Sepsis SIRS Temperature: Pulse: Respiratory Rate: Laboratory Tests 10/09/22 09:05: White Blood Count 2.4L Blood Pressure / Mean: 10/09/22 09:05: Lactic Acid Level 1.26 Laboratory Tests 10/09/22 09:05: Creatinine 1.32H, Platelet Count 169, Total Bilirubin 0.6 Results/Orders Lab Results Laboratory Tests Test 10/09/22 09:05 10/09/22 09:08 10/09/22 09:27 Range/Units White Blood Count 2.4 L 4.3-11.0 10^3/uL Red Blood Count 5.81 H 4.30-5.52 10^6/uL Hemoglobin 16.8 13.3-17.7 g/dL Hematocrit 49 40-54 % Mean Corpuscular Volume 84 80-99 fL Mean Corpuscular Hemoglobin 29 25-34 pg Mean Corpuscular Hemoglobin Concent 34 32-36 g/dL Red Cell Distribution Width 13.2 10.0-14.5 % Platelet Count 169 130-400 10^3/uL Mean Platelet Volume 9.1 9.0-12.2 fL Immature Granulocyte % (Auto) 0 % Neutrophils (%) (Auto) 14 L 42-75 % Lymphocytes (%) (Auto) 77 H 12-44 % Monocytes (%) (Auto) 7 0-12 % Eosinophils (%) (Auto) 0 0-10 % Basophils (%) (Auto) 1 0-10 % Neutrophils # (Auto) 0.4 L 1.8-7.8 10^3/uL Lymphocytes # (Auto) 1.9 1.0-4.0 10^3/uL Monocytes # (Auto) 0.2 0.0-1.0 10^3/uL Eosinophils # (Auto) 0.0 0.0-0.3 10^3/uL Basophils # (Auto) 0.0 0.0-0.1 10^3/uL Immature Granulocyte # (Auto) 0.0 0.0-0.1 10^3/uL Neutrophils % (Manual) 16 % Lymphocytes % (Manual) 39 % Monocytes % (Manual) 5 % Band Neutrophils 3 % Atypical Lymphocytes 36 % Reactive Lymphocytes 1 % Platelet Estimate NORMAL Blood Morphology Comment NORMAL Sodium Level 132 L 135-145 MMOL/L Potassium Level 3.6 3.6-5.0 MMOL/L Chloride Level 96 L 98-107 MMOL/L Carbon Dioxide Level 22 21-32 MMOL/L Anion Gap 14 5-14 MMOL/L Blood Urea Nitrogen 21 H 7-18 MG/DL Creatinine 1.32 H 0.60-1.30 MG/DL Estimat Glomerular Filtration Rate 70 BUN/Creatinine Ratio 16 Glucose Level 116 H 70-105 MG/DL Lactic Acid Level 1.26 0.50-2.00 MMOL/L Calcium Level 9.1 8.5-10.1 MG/DL Corrected Calcium 9.1 8.5-10.1 MG/DL Total Bilirubin 0.6 0.1-1.0 MG/DL Aspartate Amino Transf (AST/SGOT) 98 H 5-34 U/L Alanine Aminotransferase (ALT/SGPT) 89 H 0-55 U/L Alkaline Phosphatase 83 40-136 U/L Troponin I < 0.30 <0.30 NG/ML C-Reactive Protein < 0.30 <0.50 MG/DL Total Protein 7.4 6.4-8.2 GM/DL Albumin 4.0 3.2-4.5 GM/DL Lipase 83 H 8-78 U/L Monoscreen NEGATIVE NEGATIVE Glucometer 122 H 70-110 MG/DL Urine Color DARK YELLOW Urine Clarity CLEAR Urine pH 6.0 5-9 Urine Specific Williamson 1.025 H 1.016-1.022 Urine Protein 2+ H NEGATIVE Urine Glucose (UA) NEGATIVE NEGATIVE Urine Ketones TRACE H NEGATIVE Urine Nitrite NEGATIVE NEGATIVE Urine Bilirubin NEGATIVE NEGATIVE Urine Urobilinogen 0.2 < = 1.0 MG/DL Urine Leukocyte Esterase NEGATIVE NEGATIVE Urine RBC (Auto) NEGATIVE NEGATIVE Urine RBC NONE /HPF Urine WBC 2-5 /HPF Urine Squamous Epithelial Cells RARE /HPF Urine Crystals PRESENT H /LPF Urine Amorphous Sediment FEW CHAR URATES H /LPF Urine Bacteria MODERATE H /HPF Urine Casts PRESENT /LPF Urine Hyaline Casts 5-10 H /LPF Urine Mucus MODERATE H /LPF Urine Culture Indicated YES My Orders Orders - NICOLE ARMSTRONG MD Cbc With Automated Diff (10/09/22 09:05) Comprehensive Metabolic Panel (10/09/22 09:05) Blood Culture (10/09/22 09:05) Ua Culture If Indicated (10/09/22 09:05) Ed Iv/Invasive Line Start (10/09/22 09:05) Crp Fs (10/09/22 09:05) Lactic Acid Analyzer (10/09/22 09:05) Lipase (10/09/22 09:05) Troponin I Fs (10/09/22 09:05) Chest 1 View Ap/Pa Only (10/09/22 09:05) Ct Abdomen/Pelvis W (10/09/22 09:05) Accucheck Stat ONCE (10/09/22 09:08) Iohexol Injection (Omnipaque 350 Mg/Ml 1 (10/09/22 09:15) Received Contrast (Hold Metformin- Contr (10/09/22 09:15) Ns (Ivpb) (Sodium Chloride 0.9% Ivpb Bag (10/09/22 09:15) Ns Iv 1000 Ml (Sodium Chloride 0.9%) (10/09/22 09:09) Ondansetron Injection (Zofran Injectio (10/09/22 09:09) Pantoprazole Injection (Protonix Injecti (10/09/22 09:09) Ketorolac Injection (Toradol Injection) (10/09/22 09:09) Urine Culture (10/09/22 09:27) Manual Differential (10/09/22 09:05) Monotest (10/09/22 10:05) Ns Iv 1000 Ml (Sodium Chloride 0.9%) (10/09/22 10:44) Ekg Tracing (10/09/22 11:42) Medications Given in ED Current Medications Medications Dose Ordered Sig/Arianne Route Start Time Stop Time Status Last Admin Dose Admin Iohexol 100 ml ONCE ONCE IV 10/09/22 09:15 10/09/22 09:16 DC 10/09/22 09:47 80 ML Sodium Chloride 100 ml ONCE ONCE IV 10/09/22 09:15 10/09/22 09:16 DC 10/09/22 09:46 100 ML Vital Signs/I&O 10/09/22 10/09/22 09:05 11:53 Temp 35.5 36.2 Pulse 85 81 Resp 18 18 B/P (MAP) 112/74 (87) 115/68 Pulse Ox 96 99 O2 Delivery Room Air Room Air Capillary Refill : Progress Note #1: Progress Note Potential diagnosis of gastritis, colitis, diverticulitis, appendicitis, cholecystitis, sepsis, urinary tract infection, pyelonephritis, tickborne illness. On my review of his previous emergency department visits he did have a tickborne illness lab panel drawn which was negative for all antibodies. Establish peripheral IV access and send labs for complete blood count, comprehensive metabolic profile, blood cultures x2, lactic acid, lipase, troponin, urinalysis. Obtain 1 view chest x-ray to evaluate for any signs of pneumonia, lung mass, pleural effusion, cardiomegaly. CT scan of the abdomen and pelvis with IV contrast to evaluate for his complaint of diffuse abdominal pain with nausea vomiting and diarrhea along with a fever. Administer normal saline 1 L IV fluid bolus for hydration, Zofran 4 mg IV for nausea and vomiting, pantoprazole 40 mg IV for possible gastritis with him not being able to eat or drink well for several days. Toradol 15 mg IV for generalized body aches and diffuse abdominal pain. On arrival his heart rate is in the 80s and sinus rhythm and his blood pressure ranges from 99-114 systolic. He has not oxygen saturation 93 to 95% on room air. An Accu-Chek was obtained since he was diaphoretic and it was 122. He did not have a fever here in the ED but was diaphoretic on arrival. Progress Note #2: Time: 09:21 Progress Note My personal interpretation and review I did not appreciate any acute infiltrate or effusion or cardiomegaly on his 1 view chest x-ray. 0947 his complete blood count shows low white blood cell count at 2.4. He has hemoglobin at the high side of normal at 16.8. Platelets are 169. He has 14% neutrophils and 77% lymphocytes on the automated differential. His lactic acid is negative at 1.26. His urinalysis does show some dehydration with elevated specific gravity of 1.025. He has 2+ protein with trace ketones present. There are urine crystals present as well and moderate bacteria. A urine culture was reflexed. It is negative for nitrites, leukocyte esterase and white blood cells. Progress Note #3: Time: 10:04 Progress Note On the manual differential for his white blood cell count he had 39% lymphocytes and 36% atypical lymphocytes. There were 16% neutrophils and 3% bands. His comprehensive metabolic profile showed sodium of 132, potassium 3.6, mild elevation of the BUN to 21 and mild elevation of the creatinine to 1.32. His AST was slightly elevated to 98 and ALT slightly elevated at 89. His troponin was less than 0.3 which was negative. His CRP also was less than 0.3. He had a mild elevation of the lipase to 83 which might be consistent with him having recurrent episodes of nausea and vomiting. Its not high enough to consider him having acute pancreatitis. On my personal interpretation and review of the CT scan of the abdomen and pelvis with IV contrast I did not appreciate any acute obstruction or blockage. It did look like he might have some gallstones in the gallbladder but no pericholecystic fluid or signs of obstruction or blockage. 1018 I reviewed the radiologist report and they did not appreciate any acute process in the abdomen or pelvis to account for patient's symptoms. They did mention that he had 2 areas that appear to be hemangiomas of the liver. 1028 With him having elevated Atypical lymphocytes I added on a Monospot test since he has had symptoms for almost 2 weeks. This was negative. Progress Note #4: Time: 10:44 Progress Note On recheck of the patient he reports that he was feeling better after treatment in the ED. He has had no vomiting or diarrhea here in the ED. He continues to deny any UTI type symptoms of burning, frequency, suprapubic pain. He was advised of the test results with blood work showing signs of white blood cells more typical with viral type infections. He had a negative Monospot test as well as negative findings for sepsis. He had signs of dehydration with concentrated urine specific gravity and slightly elevated creatinine. He was also advised that the chest x-ray did not show any signs of acute pneumonia or infiltrate and his CT scan of the abdomen and pelvis did not show any acute inflammatory or infectious process. No obstruction or surgical findings. We will repeat a liter of normal saline for additional hydration. Have him try a p.o. challenge with some ice water and crackers or Jell-O. If he is tolerating this well and not having any worsening symptoms then he could be discharged home with nausea medication and phone numbers for the [facility] so he could follow-up with them for continued concerns and repeat testing for antibodies of tickborne illness as well as Monospot if needed. Advised that if he cannot keep anything down or his symptoms were worsening again after trying to eat and drink I would talk with the hospitalist about observation admission to make sure that you stay hydrated and was tolerating oral intake prior to going home. Patient was hoping that he tolerates the intake by mouth so that he could go home as he was not wanting to be admitted if he could avoid it. On recheck of the patient he was tolerating po and not having pain or emesis. Will discharge to home on zofran odt 4 mg q 6 hour prn n/v and have him follow up with clinic for additional testing and care. Likely need repeat of antibody testing in 1-2 weeks. ECG Initial ECG Impression Date: October 09, 2022 Initial ECG Impression Time: 09:04 Initial ECG Rate: 82 Initial ECG Rhythm: Normal Sinus Initial ECG Comparisson: Unchanged (similar to tracing from 06/24/2022) Comment My personal interpretation and review the electrocardiogram shows normal sinus rhythm with a heart rate of 82 bpm. AL interval [address] elevation. QT interval 368 ms with a QTc interval 407 ms. Overall appears similar to prior tracing from June 24, 2022. Diagnostic Imaging Diagonstic Imaging: Xray Plain Films/CT/US/NM/MRI: chest Comments [facility] [place], [place] NAME[facility] REC#: [id number] PT STATUS: REG ER : 1980 PHYSICIAN: NICOLE ARMSTRONG MD ADMIT DATE: 10/09/22/ER FS Draft Date of Exam:10/09/22 CHEST 1 VIEW AP/PA ONLY CLINICAL INDICATION: Patient with fever, chills, and bodyaches with shortness of breath. EXAM: Portable chest x-ray upright view. COMPARISON: Chest x-ray dated 06/24/2022. FINDINGS: Lungs/pleura: Lungs are clear. There is no pneumothorax. There is no pleural effusion. Mediastinum: Unremarkable. Pulmonary vasculature: Unremarkable. Heart: Unremarkable. Bones/extrathoracic soft tissue: There are hypertrophic spurs involving the thoracic spine. IMPRESSION: There is no radiographic evidence of acute cardiopulmonary process. Dictated on workstation # [id number] Dict: 10/09/22923 Trans: 10/09/22 09 [id number] Interpreted by: VLADISLAV MARTINEZ MD Electronically signed by: Reviewed: Reviewed by Me (I reviewed the radiologist report at 0938) Diagonstic Imaging: CT Plain Films/CT/US/NM/MRI: abdomen, pelvis Comments NAME: [facility] REC#: [id number] PT STATUS: REG ER : 1980 PHYSICIAN: NICOLE ARMSTRONG MD ADMIT DATE: 10/09/22/ER FS Signed Date of Exam:10/09/22 CT ABDOMEN/PELVIS W CT ABDOMEN/PELVIS W TECHNIQUE: Multiple contiguous axial images were obtained through the abdomen and pelvis after administration of intravenous contrast. All CT scans use one or more of the following dose optimizing techniques: automated exposure control, MA and/or KvP adjustment based on patient size and exam type or iterative reconstruction. INDICATION: Abdominal pain with nausea and vomiting. COMPARISON: None available. FINDINGS: Lower chest: The lung bases are clear. No pericardial or pleural effusion. Peritoneum: No free intraperitoneal air or fluid. Liver and biliary system: There are 2 cavernous type hemangiomas in the right hepatic lobe, largest measuring 2.0 x 2.0 cm. No concerning focal hepatic lesion. Gallbladder is normal. No biliary duct dilatation. Spleen and Pancreas: Spleen is normal. The pancreas enhances normally without mass lesion or peripancreatic inflammatory changes. Adrenals: Normal. tract: The kidneys enhance normally without suspicious mass or obstruction. Urinary bladder is distended without wall thickening. Prostate is not enlarged. GI tract: Stomach is partially filled fluid. No bowel obstruction. No pericolonic inflammatory changes. Normal appendix. Vasculature and Lymph nodes: Normal caliber aorta. No abdominal or pelvic lymphadenopathy. Musculoskeletal: No concerning osseous lesion. IMPRESSION: 1. No acute obstructive or inflammatory process. There is no colitis, diverticulitis or bowel obstruction. Dictated by: Dictated on workstation # [id number] Dict: 10/09/22 1003 Trans: 10/09/22 100 [facility] [id number] Interpreted by: SHAD CHAUDHARI MD Electronically signed by: SHAD CHAUDHARI MD 10/09/22 1008 Reviewed: Reviewed by Me (I reviewed the radiologist report at 1018) Departure Impression Primary Impression: Nausea vomiting and diarrhea Additional Impressions: Generalized weakness Fever in adult Tick bite of axillary region Qualified Codes: S40.862A - Insect bite (nonvenomous) of left upper arm, initial encounter; W57.XXXA - Bitten or stung by nonvenomous insect and other nonvenomous arthropods, initial encounter Disposition: 01 HOME, SELF-CARE Condition: Stable Departure-Patient Inst. Decision time for Depature: 11:42 Referrals: NO,LOCAL PHYSICIAN (PCP) Primary Care Physician [facility] Patient Instructions: Fatigue ED, Insect Bites and Stings ED, Nausea and Vomiting, Adult ED, Fever, Adult ED Add. Discharge Instructions: Keep sipping on fluids to stay hydrated. Try following a soft/bland diet to be easy on your stomach. Use the nausea medicine to help try to keep your stomach settled so you can eat and drink better. Call [facility] clinic to see about establishing care and follow up with a provider. They will likely want to repeat antibody testing for Tick borne illness and Mononucleosis in another 1-2 weeks to see if any of the antibodies are showing positive. The initial tests are negative for any of the antibodies. Their phone number si [phone] Scripts Ondansetron (Ondansetron Odt) 4 Mg Tab.rapdis 4 MG PO Q6H PRN for NAUSEA/VOMITING for 3 Days, #12 TAB 0 Refills Prov: NICOLE ARMSTRONG MD 10/09/22 Work/School Note: Work Release Form Date Seen in the Emergency Department: October 09, 2022 Return to Work: Oct 12, 2022 Restrictions: Return-No Fever (24hrs), Return-No Vomiting(24hrs) NICOLE ARMSTRONG MD October 09, 2022 09:08
[2022-10-09] MEDS ORDERED: NS IV 1000 ML 1,000 ML IV STA ×2 (09:09→10:44)
[2022-10-09] MEDS ORDERED: PANTOPRAZOLE 40 MG (PROTONIX) VIAL IV STA (09:09)
[2022-10-09] MEDS ORDERED: ONDANSETRON 4 MG/2 ML (SDV) Z0FRAN IVP STA (09:09)
[2022-10-09] MEDS ORDERED: KETOROLAC 15 MG/ML VIAL IVP STA (09:09)
[2022-10-09] MEDS ORDERED: IOHEXOL 350 MG/ML 100 ML (OMNIPAQUE 350) VIAL IV ONE (09:15)
[2022-10-09] MEDS ORDERED: NS 100 ML (IVPB) BAG IV ONE (09:15)
[2022-10-09] MEDS ORDERED: HOLD METFORMIN - RECEIVED CONTRAST 20 ML VIAL IV SCH (09:15)
[2022-10-09 09:21] LABS: BASOPHILS % (AUTO) 1 % (0-10); EOSINOPHILS % (AUTO) 0 % (0-10); HEMATOCRIT 49 % (40-54); HEMOGLOBIN 16.8 g/dL (13.3-17.7); LYMPHOCYTES # (AUTO) 1.9 10^3/uL (1.0-4.0); LYMPHOCYTES % (AUTO) 77 % (12-44); MEAN CORPUSCULAR HEMOGLOBIN 29 pg (25-34); MEAN CORPUSCULAR HGB CONC 34 g/dL (32-36); MEAN CORPUSCULAR VOLUME 84 fL (80-99); MEAN PLATELET VOLUME 9.1 fL (9.0-12.2); MONOCYTES # (AUTO) 0.2 10^3/uL (0.0-1.0); MONOCYTES % (AUTO) 7 % (0-12); NEUTROPHILS # (AUTO) 0.4 10^3/uL (1.8-7.8); NEUTROPHILS % (AUTO) 14 % (42-75); PLATELET COUNT 169 10^3/uL (130-400); WHITE BLOOD COUNT 2.4 10^3/uL (4.3-11.0)
--- NOTE | 2022-10-09 09:27 | Diagnostic Imaging Report ---
CLINICAL INDICATION: Patient with fever, chills, and bodyaches with shortness of breath. EXAM: Portable chest x-ray upright view. COMPARISON: Chest x-ray dated 06/24/2022. FINDINGS: Lungs/pleura: Lungs are clear. There is no pneumothorax. There is no pleural effusion. Mediastinum: Unremarkable. Pulmonary vasculature: Unremarkable. Heart: Unremarkable. Bones/extrathoracic soft tissue: There are hypertrophic spurs involving the thoracic spine. IMPRESSION: There is no radiographic evidence of acute cardiopulmonary process. Dictated by: Dictated on workstation # [id number]
[2022-10-09 09:31] LABS: BILIRUBIN,URINE NEGATIVE (NEGATIVE); CLARITY,URINE CLEAR; GLUCOSE, URINE (UA) NEGATIVE (NEGATIVE); KETONES,URINE TRACE (NEGATIVE); LEUKOCYTE ESTERASE ,URINE NEGATIVE (NEGATIVE); NITRITE,URINE NEGATIVE (NEGATIVE); PROTEIN,URINE 2+ (NEGATIVE)
[2022-10-09 09:42] LABS: BACTERIA,URINE MODERATE /HPF; COLOR,URINE DARK YELLOW; SQUAMOUS EPITHELIAL CELL,UR RARE /HPF
[2022-10-09 09:43] LABS: AMORPHOUS SEDIMENT,UR FEW AMOR URATES /LPF
[2022-10-09 09:45] LABS: ALKALINE PHOSPHATASE 83 U/L (40-136); BILIRUBIN,TOTAL 0.6 MG/DL (0.1-1.0); BUN/CREATININE RATIO 16; CALCIUM 9.1 MG/DL (8.5-10.1); CARBON DIOXIDE 22 MMOL/L (21-32); CHLORIDE 96 MMOL/L (98-107); CREATININE SERUM 1.32 MG/DL (0.60-1.30); GFR ESTIMATED 70; GLUCOSE 116 MG/DL (70-105); POTASSIUM 3.6 MMOL/L (3.6-5.0); SODIUM 132 MMOL/L (135-145)
[2022-10-09 09:46] LABS: ALANINE AMINOTRANSFERASE 89 U/L (0-55); LIPASE 83 U/L (8-78); TOTAL PROTEIN 7.4 GM/DL (6.4-8.2)
[2022-10-09 09:57] LABS: ATYPICAL LYMPHOCYTES 36 %; BAND NEUTROPHILS 3 %; LYMPHOCYTES % (MANUAL) 39 %; MONOCYTES % (MANUAL) 5 %; NEUTROPHILS % (MANUAL) 16 %; REACTIVE LYMPHOCYTES 1 %
[2022-10-09 09:58] LABS: PLATELET ESTIMATE NORMAL; RBC MORPH NORMAL
--- NOTE | 2022-10-09 10:09 | Diagnostic Imaging Report ---
CT ABDOMEN/PELVIS W TECHNIQUE: Multiple contiguous axial images were obtained through the abdomen and pelvis after administration of intravenous contrast. All CT scans use one or more of the following dose optimizing techniques: automated exposure control, MA and/or KvP adjustment based on patient size and exam type or iterative reconstruction. INDICATION: Abdominal pain with nausea and vomiting. COMPARISON: None available. FINDINGS: Lower chest: The lung bases are clear. No pericardial or pleural effusion. Peritoneum: No free intraperitoneal air or fluid. Liver and biliary system: There are 2 cavernous type hemangiomas in the right hepatic lobe, largest measuring 2.0 x 2.0 cm. No concerning focal hepatic lesion. Gallbladder is normal. No biliary duct dilatation. Spleen and Pancreas: Spleen is normal. The pancreas enhances normally without mass lesion or peripancreatic inflammatory changes. Adrenals: Normal. tract: The kidneys enhance normally without suspicious mass or obstruction. Urinary bladder is distended without wall thickening. Prostate is not enlarged. GI tract: Stomach is partially filled fluid. No bowel obstruction. No pericolonic inflammatory changes. Normal appendix. Vasculature and Lymph nodes: Normal caliber aorta. No abdominal or pelvic lymphadenopathy. Musculoskeletal: No concerning osseous lesion. IMPRESSION: 1. No acute obstructive or inflammatory process. There is no colitis, diverticulitis or bowel obstruction. Dictated by: Dictated on workstation # [id number]
[2022-10-09] MEDS ORDERED: ONDA4TAB11 PO (10:55)
[2022-10-09 11:53] VITALS: BP 115/68
== END 2022-10-09 11:54 | disposition home or self-care (01) ==
LOC: EDUNIT# 08:56 → ER FS 09:00
DX: S40.862A Insect bite (nonvenomous) of left upper arm, initial encounter (principal); R11.2 Nausea with vomiting, unspecified; R19.7 Diarrhea, unspecified; R53.1 Weakness; R50.9 Fever, unspecified; Z28.310 Unvaccinated for COVID-19; W57.XXXA Bitten or stung by nonvenomous insect and other nonvenomous arthropods, initial encounter
CPT/HCPCS: 36415; 71045; 74177; 80053; 81000; 82947; 83605; 83690; 84484; 85007; 85027; 86141; 86308; 87040; 87088; 93005

== ENCOUNTER 2023-01-07 18:45 | Emergency (ER) | payer BC ==
[~2023-01-07] VITALS: Ht 182.9 cm; Wt 88.0 kg
[~2023-01-07 18:45] MED LIST changes: +ONDA4TAB11 PO
[2023-01-07 19:15] LABS: BILIRUBIN,URINE NEGATIVE (NEGATIVE); CLARITY,URINE CLEAR; COLOR,URINE YELLOW; GLUCOSE, URINE (UA) NEGATIVE (NEGATIVE); KETONES,URINE NEGATIVE (NEGATIVE); LEUKOCYTE ESTERASE ,URINE NEGATIVE (NEGATIVE); NITRITE,URINE NEGATIVE (NEGATIVE); PROTEIN,URINE NEGATIVE (NEGATIVE)
[2023-01-07 19:23] LABS: BACTERIA,URINE NEGATIVE /HPF; SQUAMOUS EPITHELIAL CELL,UR RARE /HPF
[2023-01-07 19:30] LABS: AMPHETAMINE SCREEN, URINE POSITIVE (NEGATIVE); BENZODIAZEPINES SCREEN URINE NEGATIVE (NEGATIVE); COCAINE SCREEN URINE POSITIVE (NEGATIVE)
[2023-01-07 19:31] LABS: BARBITURATE SCREEN URINE NEGATIVE (NEGATIVE); CANNABINOID SCREEN, URINE POSITIVE (NEGATIVE); METHADONE STAT NEGATIVE (NEGATIVE); OPIATE SCREEN URINE NEGATIVE (NEGATIVE); OXYCODONE STAT NEGATIVE (NEGATIVE); PROPOXYPHENE STAT NEGATIVE (NEGATIVE); TRICYCLIC ANTIDEPRESSANTS SCRE NEGATIVE (NEGATIVE)
--- NOTE | 2023-01-07 19:49 | ED Back Pain ---
General Chief Complaint: Back Problems Stated Complaint: BACK PAIN FOR 4 WEEKS Nursing Triage Note: Patient c/o lower back pain x 1 mth with no known injury. Patient denies any loss of bowel or bladder control or numbness to his saddle area. Patient states he has increased pain with laying down or movment. Patient states he has taken 800 mg IBU x 2 doses with no change in his symptoms. Source of Information: Patient History of Present Illness Date Seen by Provider: Jan 07, 2023 Time Seen by Provider: 19:49 Initial Comments 42-year-old male presenting with complaints of lower back pain worse on the left side and going down the back of his left leg. States this has been worsening over the last month. He thinks it is being exacerbated by his job where he has to do a lot of heavy lifting and pulling. He reports having a back injury 2 years ago and has had some pain ever since. He denies having any loss of bowel or bladder control. There is no recent acute direct injury to his back. He had tried taking some ibuprofen today with any significant improvement. He states he had to leave work today because of the pain. Location: Lumbar Spine, Paraspinous Muscles, Other (Left SI joint and down the back of the left leg) Timing/Duration: Other (Over a month) Severity: Severe Pain/Injury Location: Back (Left-sided going down the left leg) Method of Injury: Unknown Modifying Factors: Worse With Movement Associated Symptoms: muscle spasms; No fever, No weakness, No numbness in legs/feet, No tingling in legs/feet, No sensory/motor loss; lower back pain; No loss of bladder control, No loss of bowel control Allergies and Home Medications Allergies Coded Allergies: Penicillins (Verified Allergy, Intermediate, Rash, 10/09/22) Patient Home Medication List Home Medication List Reviewed: Yes Albuterol (Proventil) 17 Gm Inh, (Reported) Entered as Reported by: JUWAN ELLIS on 06/02/10 1438 Cyclobenzaprine HCl (Cyclobenzaprine HCl) 10 Mg Tablet, 10 MG PO Q8H PRN for SPASMS Prescribed by: NICOLE ARMSTRONG on 01/07/232014 Doxycycline Hyclate (Doxycycline Hyclate) 100 Mg Tablet, 100 MG PO BID Prescribed by: LILLI FERNANDEZ on 10/02/22 193 Hydrocodone/Acetaminophen (Hydrocodone-Acetamin 5-325 mg) 5 Mg-325 Mg Tablet, 1 TAB PO Q6H PRN for PAIN SEVERE Prescribed by: NICOLE ARMSTRONG on 01/07/232015 Ondansetron (Ondansetron Odt) 4 Mg Tab.rapdis, 4 MG PO Q6H PRN for NAUSEA/VOMITING Prescribed by: NICOLE ARMSTRONG on 10/09/22 1055 Prednisone (Prednisone) 20 Mg Tab, 40 MG PO DAILY Prescribed by: NICOLE ARMSTRONG on 01/07/232014 Review of Systems Constitutional: No chills, No fever EENTM: no symptoms reported Respiratory: no symptoms reported Cardiovascular: no symptoms reported Gastrointestinal: no symptoms reported Genitourinary: no symptoms reported Musculoskeletal: see HPI Skin: No change in color Psychiatric/Neurological: Denies Numbness, Denies Paresthesia Past [id number]-Lhvjrq Hx Patient Social History Tobacco Use?: Yes Tobacco type used: Cigarettes Smoking Status: Current Everyday Smoker Use of E-Cig and/or Vaping dev: No Substance use?: No Alcohol Use?: Yes Alcohol Frequency: Once in a while Immunizations Up To Date Influenza Vaccine Up-to-Date: No; Not Current First/Initial COVID19 Vaccinat: Denies Seasonal Allergies Seasonal Allergies: No Past Medical History Surgery/Hospitalization HX: ASTHMA, sciatica Surgeries: No Respiratory: No Cardiac: No Neurological: No Genitourinary: No Gastrointestinal: No Musculoskeletal: No Endocrine: No HEENT: No Cancer: No Psychosocial: No Integumentary: No Blood Disorders: No Family Medical History No Pertinent Family Hx Physical Exam Vital Signs Vital Signs - First Documented 01/07/23 18:48 Temp 36.9 Pulse 98 Resp 16 B/P (MAP) 145/109 (121) O2 Delivery Room Air Capillary Refill : Height, Weight, BMI Height: '" Weight: lbs. oz. kg; 26.00 BMI Method:Estimated General Appearance: WD/WN, Mild Distress (Appears uncomfortable and having a majano rd time finding a comfortable position to sit during the exam) HEENT: PERRL/EOMI Cardiovascular: Regular Rate, Rhythm, Normal Peripheral Pulses Respiratory: Chest Non Tender, Lungs Clear, Normal Breath Sounds Back: No CVA Tenderness, No Vertebral Tenderness, Other (Tender to palpation over the left SI joint and low left-sided lumbar paraspinal muscle spasms) Extremity: Normal Capillary Refill, Normal Inspection, No Pedal Edema Neurologic/Psychiatric: Alert, Oriented x3 Skin: Normal Color, Warm/Dry Progress/Results/Core Measures Results/Orders Lab Results Laboratory Tests Test 01/07/23 19:04 Range/Units Urine Color YELLOW Urine Clarity CLEAR Urine pH 6.0 5-9 Urine Specific [place] 1.025 H 1.016-1.022 Urine Protein NEGATIVE NEGATIVE Urine Glucose (UA) NEGATIVE NEGATIVE Urine Ketones NEGATIVE NEGATIVE Urine Nitrite NEGATIVE NEGATIVE Urine Bilirubin NEGATIVE NEGATIVE Urine Urobilinogen 0.2 < = 1.0 MG/DL Urine Leukocyte Esterase NEGATIVE NEGATIVE Urine RBC (Auto) NEGATIVE NEGATIVE Urine RBC NONE /HPF Urine WBC NONE /HPF Urine Squamous Epithelial Cells RARE /HPF Urine Crystals NONE /LPF Urine Bacteria NEGATIVE /HPF Urine Casts NONE /LPF Urine Mucus NEGATIVE /LPF Urine Culture Indicated NO Urine Opiates Screen NEGATIVE NEGATIVE Urine Oxycodone Screen NEGATIVE NEGATIVE Urine Methadone Screen NEGATIVE NEGATIVE Urine Propoxyphene Screen NEGATIVE NEGATIVE Urine Barbiturates Screen NEGATIVE NEGATIVE Ur Tricyclic Antidepressants Screen NEGATIVE NEGATIVE Urine Phencyclidine Screen NEGATIVE NEGATIVE Urine Amphetamines Screen POSITIVE H NEGATIVE Urine Methamphetamines Screen POSITIVE H NEGATIVE Urine Benzodiazepines Screen NEGATIVE NEGATIVE Urine Cocaine Screen POSITIVE H NEGATIVE Urine Cannabinoids Screen POSITIVE H NEGATIVE My Orders Orders - NICOLE ARMSTRONG MD Ua Culture If Indicated (01/07/23 18:57) Drug Screen Stat (Urine) (01/07/23 18:57) Orphenadrine Inj (Ed Only) (Orphenadrine (01/07/23 20:12) Morphine Injection (Morphine Injection (01/07/23 20:12) Prednisone Tablet (Prednisone Tablet) (01/07/23 20:12) Vital Signs/I&O 01/07/23 18:48 Temp 36.9 Pulse 98 Resp 16 B/P (MAP) 145/109 (121) O2 Delivery Room Air Blood Pressure Mean: 121 Progress Progress Note : Progress Note Patient had a delay in being evaluated and seen by provider as I was working on admission of critical patient when he arrived. I did examine the patient and reviewed his history. He had provided a urine specimen so a urinalysis and urine drug screen had been run. The UA looked concentrated like you might be dehydrated and need to drink more fluids. There was no infection. His urine drug screen was positive for marijuana, cocaine, amphetamines, methamphetamines. Patient stated that he has used marijuana but denies the cocaine, amphetamines, methamphetamines. Unsure if the substances may have been laced in his marijuana that he had used. As his exam demonstrates pain over the SI joint and he is describing sciatica type pain but does not have any direct trauma to his spine to indicate need for emergent imaging will treat with steroid burst and start with prednisone 40 mg p.o. x1 here in the ED. For muscle spasms and pain administer Norflex 60 mg IM x1 for muscle spasms and pain as well as morphine 4 mg IM x1 for severe pain. For home will continue a few hydrocodone 5/325 mg pills for severe pain and prednisone 40 mg a day for 5-day steroid burst. Cyclobenzaprine 10 mg p.o. every 8 hours as needed muscle spasms. Given a note to be off work until T hursday to allow medication to work and try to rest his back. 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 Departure Impression Primary Impression: Chronic low back pain with left-sided sciatica Qualified Codes: M54.42 - Lumbago with sciatica, left side; G89.29 - Other chronic pain Disposition: HOME, SELF-CARE Condition: Stable Departure-Patient Inst. Decision time for Depature: 20:13 Referrals: NO,LOCAL PHYSICIAN (PCP) Primary Care Physician [facility] Patient Instructions: Sciatica ED, Low Back Pain ED Add. Discharge Instructions: Try taking the steroid and muscle relaxer to help with the pain and inflammation involving your sciatic nerve. For severe pain try taking the hydrocodone with acetaminophen 1 every 6 hours as needed. Establish care with the [facility] by calling [phone] so that you can follow-up about the sciatica and the back pain. If they needed to refer you to a back specialist or order physical therapy or an MRI they would be the ones that could do this. These would be tests and treatments beyond what you could get from the emergency department. All discharge instructions reviewed with patient and/or family. Voiced understanding. Scripts Hydrocodone/Acetaminophen (Hydrocodone-Acetamin 5-325 mg) 5 Mg-325 Mg Tablet 1 TAB PO Q6H PRN for PAIN SEVERE for 3 Days, #12 TAB 0 Refills Prov: NICOLE ARMSTRONG MD 01/07/23 Prednisone (Prednisone) 20 Mg Tab 40 MG PO DAILY for Sciatica for 5 Days, #10 TAB 0 Refills Prov: NICOLE ARMSTRONG MD 01/07/23 Cyclobenzaprine HCl (Cyclobenzaprine HCl) 10 Mg Tablet 10 MG PO Q8H PRN for SPASMS for 5 Days, #15 TAB 0 Refills Prov: NICOLE ARMSTRONG MD 01/07/23 Work/School Note: Work Release Form Date Seen in the Emergency Department: Jan 07, 2023 Return to Work: Jan 10, 2023 Restrictions: No Restrictions NICOLE ARMSTRONG MD Jan 07, 2023 19:49
[2023-01-07] MEDS ORDERED: predniSONE 20 MG TABLET PO STA (20:12)
[2023-01-07] MEDS ORDERED: ORPHENADRINE 60 MG/2 ML AMP (ED ONLY) IM STA (20:12)
[2023-01-07] MEDS ORDERED: morphine INJ 10 MG/ML 1ML (SYR OR VIAL) IM STA (20:12)
[2023-01-07] MEDS ORDERED: PRD20T PO (20:15)
[2023-01-07] MEDS ORDERED: ACHD5005 PO (20:15)
[2023-01-07] MEDS ORDERED: CYCL10TA25 PO (20:15)
[2023-01-07 20:53] VITALS: BP 126/92
== END 2023-01-07 20:53 | disposition home or self-care (01) ==
LOC: EDUNIT# 18:45 → ER FS 18:46
DX: M54.42 Lumbago with sciatica, left side (principal); F17.210 Nicotine dependence, cigarettes, uncomplicated; Z28.310 Unvaccinated for COVID-19
CPT/HCPCS: 80306; 81000; 99284

== ENCOUNTER 2023-02-24 01:34 | Emergency (ER) | payer BC ==
[~2023-02-24] VITALS: Ht 182.9 cm; Wt 87.0 kg
[~2023-02-24 01:34] MED LIST changes: +ACHD5005 PO; +CLIN-144 PO; +CYCL10TA25 PO; +PRD20T PO
[2023-02-24 01:38] VITALS: BP 147/104
--- NOTE | 2023-02-24 01:47 | ED General ---
General Chief Complaint: General Problems/Pain Stated Complaint: BLOOD PRESSURE Source of Information: Patient Exam Limitations: No Limitations History of Present Illness Date Seen by Provider: Feb 24, 2023 Time Seen by Provider: 01:37 Initial Comments 42-year-old male presents for a check of his blood pressure. He states is chronically elevated around 140/100. He has an appointment to see his primary doctor next week for further evaluation. Headache but does not know if it is related to his blood pressure. All other systems reviewed and negative except documented per HPI. Voice recognition software was used to help create this chart Allergies and Home Medications Allergies Coded Allergies: Penicillins (Verified Allergy, Intermediate, Rash, 10/09/22) Patient Home Medication List Home Medication List Reviewed: Yes Albuterol (Proventil) 17 Gm Inh, (Reported) Entered as Reported by: JUWAN ELLIS on 06/02/10 1438 Clindamycin HCl (Clindamycin HCl) 300 Mg Capsule, 600 MG PO BID Prescribed by: ANGUS ANDERSON MD on 02/07/231921 Cyclobenzaprine HCl (Cyclobenzaprine HCl) 10 Mg Tablet, 10 MG PO Q8H PRN for SPASMS Prescribed by: NICOLE AMRSTRONG on 01/07/232014 Doxycycline Hyclate (Doxycycline Hyclate) 100 Mg Tablet, 100 MG PO BID Prescribed by: LILLI FERNANDEZ on 10/02/22 193 Hydrocodone/Acetaminophen (Hydrocodone-Acetamin 5-325 mg) 5 Mg-325 Mg Tablet, 1 TAB PO Q6H PRN for PAIN SEVERE Prescribed by: NICOLE ARMSTRONG on 01/07/232015 Ondansetron (Ondansetron Odt) 4 Mg Tab.rapdis, 4 MG PO Q6H PRN for NAUSEA/VOMITING Prescribed by: NICOLE ARMSTRONG on 10/09/22 105 Prednisone (Prednisone) 20 Mg Tab, 40 MG PO DAILY Prescribed by: NICOLE ARMSTRONG on 01/07/232014 Review of Systems Review of Systems Constitutional: see HPI Past [id number]-[id number] Hx Patient Social History Tobacco Use?: No Use of E-Cig and/or Vaping dev: No Substance use?: No Alcohol Use?: No Immunizations Up To Date First/Initial COVID19 Vaccinat: Denies Seasonal Allergies Seasonal Allergies: No Past Medical History Surgery/Hospitalization HX: ASTHMA, sciatica Surgeries: No Respiratory: No Cardiac: No Neurological: No Genitourinary: No Gastrointestinal: No Musculoskeletal: No Endocrine: No HEENT: No Cancer: No Psychosocial: No Integumentary: No Blood Disorders: No Family Medical History No Pertinent Family Hx Physical Exam Vital Signs Capillary Refill : Height, Weight, BMI Height: '" Weight: lbs. oz. kg; 26.00 BMI Method:Estimated General Appearance: No Apparent Distress, WD/WN Eyes: Bilateral Eye Normal Inspection, Bilateral Eye PERRL, Bilateral Eye EOMI Respiratory: Chest Non Tender, Lungs Clear, Normal Breath Sounds Cardiovascular: Regular Rate, Rhythm, No Murmur Gastrointestinal: Non Tender, Soft Extremity: Normal Capillary Refill, Normal Inspection Neurologic/Psychiatric: Alert, Oriented x3, Normal Mood/Affect Skin: Normal Color, Warm/Dry Progress/Results/Core Measures Suspected Sepsis SIRS Temperature: Pulse: Respiratory Rate: Blood Pressure / Mean: Results/Orders Vital Signs/I&O Capillary Refill : Departure Communication (Admissions) Patient has what appears to be chronic hypertension. Blood pressure is 147/103 here today. He has mild headache but no other symptoms. He states that is normally when his blood pressure runs, especially in the last 6 months. He has an appoint with his primary doctor next week to further discuss. Advised to keep a log of his blood pressures and take them to his primary doctor's office for further treatment recommendations. There is no indication for emergent testing or treatment at this time. Impression Primary Impression: Elevated blood pressure reading Disposition: 01 HOME, SELF-CARE Condition: Stable Departure-Patient Inst. Referrals: NO,LOCAL PHYSICIAN (PCP/Family) Primary Care Physician Patient Instructions: High Blood Pressure ED Add. Discharge Instructions: As discussed keep a log of your blood pressures twice a day and take this to your primary doctor's appointment that you already have scheduled for further treatment recommendations. Return to the emergency department for any severe concerns All discharge instructions reviewed with patient and/or family. Voiced understanding. GIOVANY MORA DO Feb 24, 2023 01:47
== END 2023-02-24 01:54 | disposition home or self-care (01) ==
LOC: EDUNIT# 01:34 → ER FS 01:36
DX: I10 Essential (primary) hypertension (principal); R51.9 Headache, unspecified; Z28.310 Unvaccinated for COVID-19
CPT/HCPCS: 99281

== ENCOUNTER → 2023-04-17 | Outpatient (CLI) | payer BC ==
--- NOTE | 2023-04-17 13:03 | Diagnostic Imaging Report ---
INDICATION: FLANK PAIN COMPARISON: CT dated 10/09/2022. FINDINGS: Single supine radiographic view of the abdomen was obtained and demonstrates nondistended loops of small bowel. There is no large collection of free peritoneal air. No unexpected extraosseous calcifications or radiopaque foreign bodies are seen. Bony structures show no gross acute abnormalities. IMPRESSION: 1. Nonobstructed small bowel gas pattern. Dictated by: Dictated on workstation # [id number]
== END ==
LOC: RAD FS 10:46
PROVIDERS: ATTEND Urology
DX: R10.9 Unspecified abdominal pain (principal)
CPT/HCPCS: 74018